=== PATIENT | female | born 1970 | race Two or more races ===

== ENCOUNTER 2016-12-27 17:15 | Emergency (ER) | payer OTHER ==
[~2016-12-27] VITALS: Ht 162.6 cm; Wt 62.1 kg
[2016-12-27 18:14] VITALS: BP 148/91
== END 2016-12-27 19:00 | disposition home or self-care (01) ==
LOC: ED 17:15
DX: S63.502A Unspecified sprain of left wrist, initial encounter (principal); W17.89XA Other fall from one level to another, initial encounter; Y93.51 Activity, roller skating (inline) and skateboarding; Y99.8 Other external cause status; Y92.89 Other specified places as the place of occurrence of the external cause

== ENCOUNTER 2017-08-15 18:55 | Emergency (ER) | payer OTHER ==
[~2017-08-15] VITALS: Ht 162.6 cm; Wt 63.5 kg
[2017-08-15 19:33] VITALS: Ht 162.6 cm; Wt 63.5 kg
[2017-08-15 22:23] VITALS: BP 120/95
== END 2017-08-15 22:23 | disposition home or self-care (01) ==
LOC: ED 18:55
DX: S90.562A Insect bite (nonvenomous), left ankle, initial encounter (principal); L03.116 Cellulitis of left lower limb; W57.XXXA Bitten or stung by nonvenomous insect and other nonvenomous arthropods, initial encounter; Y93.89 Activity, other specified; Y92.89 Other specified places as the place of occurrence of the external cause; Y99.8 Other external cause status

== ENCOUNTER 2017-08-26 00:24 | Emergency (ER) | payer OTHER ==
[~2017-08-26] VITALS: Ht 162.6 cm; Wt 68.0 kg
[2017-08-26 00:51] VITALS: Ht 162.6 cm; Wt 68.0 kg
[2017-08-26 02:29] VITALS: BP 150/100
== END 2017-08-26 02:29 | disposition home or self-care (01) ==
LOC: ED 00:24
DX: L02.212 Cutaneous abscess of back [any part, except buttock and flank] (principal)
CPT/HCPCS: J2001